=== PATIENT | male | born 2000 | race African-American/Black ===

== ENCOUNTER 2019-11-27 13:58 | Emergency (ER) | payer MEDICAID ==
[~2019-11-27] VITALS: Ht 188 cm; Wt 95.3 kg
[~2019-11-27 13:58] MED LIST: AMOXIL250 MG ORAL; LIDOCAINE VISC100 ML ORAL; TESSALON PERLE100 MG ORAL; TYLENOL EXTRA500 MG ORAL
--- NOTE | 2019-11-27 15:17 | NUR ---
ED Nurse Note: pt with cough of phlegm x 2 weeks. was seen here at that time for same but cough and meds given not helping s/s no fevers per pt.
--- NOTE | 2019-11-27 15:49 | NUR ---
ED Nurse Note: pcxr being done
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
[2019-11-27] MEDS ORDERED: ALBUTEROL SULF8.5 GM INH (16:21)
[2019-11-27] MEDS ORDERED: PROMETHAZINE-C118 M1 ORAL (16:21)
[2019-11-27] MEDS ORDERED: IBUPROFEN600 MG ORAL (16:21)
--- NOTE | 2019-11-27 16:22 | Diagnostic Imaging Report ---
Indication: Dyspnea Comparison: None A single view chest radiograph was obtained. Findings: There is evidence of a right pleural effusion versus pleural thickening. There are small radiopaque structures that may be foreign bodies at the right lung base. There is an abnormal 3 cm ovoid density in the left upper lobe. Heart size is normal. Pulmonary vascularity is normal. Bones are unremarkable. IMPRESSION: Abnormal ovoid density in the left upper lobe. Please correlate with the patient's clinical history. Compare with prior studies if available. If none are available, evaluation with CT is suggested. Apparent right pleural effusion versus pleural thickening. Small radiopaque structures may be foreign bodies or related to prior surgery. Status post cholecystectomy
[2019-11-27 16:43] VITALS: BP 110/70
[2019-11-27 16:45] VITALS: BP 119/63
--- NOTE | 2019-11-27 16:46 | NUR ---
discharged home with instruction and rx follow up with pmd
== END 2019-11-27 16:45 | disposition home or self-care (01) ==
LOC: EMR 16:12
DX: R05 Cough (principal)
CPT/HCPCS: 71045; Z7502; 99283

== ENCOUNTER 2020-01-30 18:08 | Emergency (ER) | payer MEDICAID ==
[~2020-01-30] VITALS: Ht 188 cm; Wt 95.3 kg
[~2020-01-30 18:08] MED LIST changes: +ALBUTEROL SULF8.5 GM INH; +IBUPROFEN600 MG ORAL; +PROMETHAZINE-C118 M1 ORAL
[2020-01-30 18:16] VITALS: BP 114/69
--- NOTE | 2020-01-30 18:18 | NUR ---
ED Nurse Note: pt as per triage note. speaks full sentences easily NAD. amb steady gait mask applied and pt in isolation triage tent
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
[2020-01-30] MEDS ORDERED: ROBITUSSIN COU118 M1 ORAL (18:44)
[2020-01-30] MEDS ORDERED: LIDODERM700 M1 TOPIC (18:44)
[2020-01-30] MEDS ORDERED: DICLOFENAC SODI50 MG ORAL (18:44)
--- NOTE | 2020-01-30 18:49 | NUR ---
ED Nurse Note: Pt cleared by health care Provider for discharge. DC instructions/prescription was given and explained to pt and verbalized understanding of teachings. All medical devices such as ID band removed. Pt is AAO x4, ambulatory and left with all personal belongings. covid 19 precatuions and isolation recomendations given to pt.
[2020-01-30 18:50] VITALS: BP 114/69
== END 2020-01-30 18:51 | disposition home or self-care (01) ==
LOC: EMR 18:40
DX: M54.9 Dorsalgia, unspecified (principal); Z76.5 Malingerer [conscious simulation]; R05 Cough
CPT/HCPCS: 99282